=== PATIENT | male | born 1980 | race Caucasian/White ===

== ENCOUNTER 2021-03-20 13:45 | Emergency (ER) | payer OTHER ==
[2021-03-20 13:52] VITALS: BP 118/77; PULSE 104; TEMP 98.1; BMI 36.7
[2021-03-20] MEDS ORDERED: DIPHTH,PERTUSS(ACELL),TET 0.5 ML DISP.SYRIN IM ONE ×3 (14:34→14:37)
== END 2021-03-20 17:04 | disposition home or self-care (01) ==
LOC: JERFT 13:45
PROC: 0HQ1XZZ Repair Face Skin, External Approach (ICD-10-PCS; principal; 2021-03-20)
PROC: 3E0234Z Introduction of Serum, Toxoid and Vaccine into Muscle, Percutaneous Approach (ICD-10-PCS; 2021-03-20)
DX: S09.93XA Unspecified injury of face, initial encounter (principal)
CPT/HCPCS: 70450-TC; 70486-TC; 90471; 90715; 99284-25

== ENCOUNTER 2021-03-27 09:36 | Emergency (ER) | payer OTHER ==
[2021-03-27 09:46] VITALS: BP 135/87; PULSE 77; TEMP 98.4; BMI 36.7
== END 2021-03-27 10:26 | disposition home or self-care (01) ==
LOC: JERFT 09:36
DX: Z48.02 Encounter for removal of sutures (principal)
CPT/HCPCS: 99281-25

== ENCOUNTER 2021-11-17 09:32 | Inpatient (IN) | payer OTHER ==
[2021-11-17] MEDS ORDERED: ONDANSETRON 4 MG/2 ML VIAL IVPUSH ONE (10:12)
[2021-11-17] MEDS ORDERED: ACETAMINOPHEN 1000 MG/100 ML BAG IVPB ONE (10:12)
[2021-11-17] MEDS ORDERED: LACTATED RINGERS SOLUTION 1,000 ML/1,000 ML INFUS.BAG IV STA (10:12)
[2021-11-17] MEDS ORDERED: FAMOTIDINE 20 MG/50 ML IVPB 20 MG/50 ML MG IVPB ONE ×2 (10:38→11:11)
[2021-11-17] MEDS ORDERED: MAG HYDROX/AL HYDROX/SIMETH 30 ML UNIT-DOSE CUP PO ONE (10:38)
[2021-11-17] MEDS ORDERED: ACETAMINOPHEN INJECTION 100 ML IVPB ONE (11:10)
[2021-11-17 11:11] LABS: BASO % 0.3 % (0-2.0); EOS % 0.3 % (0-4.5); HEMOGLOBIN 15.2 GM/dL (11.7-16.9); LYMPH % 9.8 % (8-40); MCH 30.1 pg (25.7-33.7); MCHC 33.1 g/dl (32.0-35.9); MEAN CELL VOLUME 90.9 fl (80-96); MEAN PLT VOLUME 8.7 fl (7.5-11.1); MONO % 10.7 % (3.8-10.2); NEUT % 78.9 % (42.8-82.8); PLATELET COUNT 259 10^3/uL (134-434); RBC 5.06 M/mm3 (4.00-5.60); RDW 13.7 % (11.9-15.9); WHITE BLOOD COUNT 16.9 K/mm3 (4.0-10.0)
[2021-11-17] MEDS ORDERED: MAG HYDROX/AL HYDROX/SIMETH 30 ML UNIT-DOSE CUP ONE (11:11)
[2021-11-17] MEDS ORDERED: ONDANSETRON 4 MG/2 ML VIAL ONE (11:11)
[2021-11-17 11:20] LABS: INR 1.26 (0.83-1.09); PROTHROMBIN TIME (PATIENT) 14.5 SEC (9.7-13.0)
[2021-11-17 11:23] LABS: ACTIVATED PTT 33.6 SECONDS (25.2-36.5)
[2021-11-17 11:33] LABS: ALBUMIN 3.6 g/dl (3.4-5.0); BLOOD UREA NITROGEN 9.8 mg/dL (7-18); CALCIUM 8.3 mg/dL (8.5-10.1)
[2021-11-17 11:35] LABS: CREATININE 0.7 mg/dL (0.55-1.3)
[2021-11-17] MEDS ORDERED: PIPERACILLIN/TAZOB 3.375 GM 3.375 GM in DEXTROSE 5%-WATER - 50 ML IVPB ONE (13:41)
[2021-11-17] MEDS ORDERED: PIPERACILLIN/TAZOB 3.375 GM 3.375 GM/50 ML BAG IVPB ONE ×2 (13:44→17:05)
[2021-11-17 16:25] LABS: EPI CELLS 14 /uL (0-25.1); HYALINE CASTS 6 /uL (0-3.1); PH,URINE 5.5 (5.0-8.0); URINE APPEARANCE CLEAR; URINE BACTERIA 13 /uL (0-1359); URINE BILIRUBIN NEGATIVE (NEGATIVE); URINE COLOR YELLOW; URINE GLUCOSE (UA) NEGATIVE (NEGATIVE); URINE KETONE 1+ (NEGATIVE); URINE LEUK ESTERASE NEGATIVE (NEGATIVE); URINE NITRITE NEGATIVE (NEGATIVE); URINE PROTEIN 1+ (NEGATIVE); URINE RBC 59 /uL (0-23.9); URINE UROBILINOGEN 0.2 mg/dL (0.2-1.0); URINE WBC 20 /uL (0-25.8)
[2021-11-17] MEDS: SODIUM CHLORIDE 1,000 ML IV SCH (17:18)
[2021-11-17] MEDS: PIPERACILLIN/TAZOB 3.375 GM 3.375 GM in DEXTROSE 5%-WATER - 50 ML IVPB SCH (18:05)
[2021-11-18] MEDS ORDERED: PIPERACILLIN/TAZOBACTAM 3.375 GM VIAL IVPB ONE ×3 (00:52→16:56)
[2021-11-18] MEDS ORDERED: DEXTROSE 5%-WATER - 50 ML IVPB ONE ×3 (00:52→16:56)
[2021-11-18 01:50] VITALS: BMI 51.9
[2021-11-18] MEDS: PIPERACILLIN/TAZOB 3.375 GM 3.375 GM in DEXTROSE 5%-WATER - 50 ML IVPB SCH ×4 (01:57→17:34)
[2021-11-18] MEDS: SODIUM CHLORIDE 1,000 ML IV SCH ×2 (06:01→17:35)
[2021-11-18 08:19] LABS: HEMATOCRIT 43.3 % (35.4-49); HEMOGLOBIN 14.2 GM/dL (11.7-16.9); MCH 30.4 pg (25.7-33.7); MCHC 32.8 g/dl (32.0-35.9); MEAN CELL VOLUME 92.6 fl (80-96); MEAN PLT VOLUME 8.9 fl (7.5-11.1); PLATELET COUNT 219 10^3/uL (134-434); RBC 4.67 M/mm3 (4.00-5.60); RDW 13.8 % (11.9-15.9); WHITE BLOOD COUNT 10.6 K/mm3 (4.0-10.0)
[2021-11-18 08:24] LABS: INR 1.27 (0.83-1.09); PROTHROMBIN TIME (PATIENT) 14.6 SEC (9.7-13.0)
[2021-11-18 08:39] LABS: CALCIUM 8.4 mg/dL (8.5-10.1)
[2021-11-18 08:42] LABS: CREATININE 0.8 mg/dL (0.55-1.3)
[2021-11-18] MEDS: D5-1/2NS+10 MEQ KCL - 10 MEQ/1,000 ML INFUS.BAG IV SCH (17:29)
[2021-11-19] MEDS ORDERED: PIPERACILLIN/TAZOBACTAM 3.375 GM VIAL IVPB ONE ×3 (01:12→17:53)
[2021-11-19] MEDS ORDERED: DEXTROSE 5%-WATER - 50 ML IVPB ONE ×3 (01:13→17:54)
[2021-11-19] MEDS: PIPERACILLIN/TAZOB 3.375 GM 3.375 GM in DEXTROSE 5%-WATER - 50 ML IVPB SCH ×3 (01:27→18:00)
[2021-11-19] MEDS: D5-1/2NS+10 MEQ KCL - 10 MEQ/1,000 ML INFUS.BAG IV SCH ×2 (05:11→18:00)
[2021-11-19 09:06] LABS: BASO % 0.8 % (0-2.0); HEMATOCRIT 42.5 % (35.4-49); HEMOGLOBIN 14.1 GM/dL (11.7-16.9); LYMPH % 23.2 % (8-40); MCH 30.5 pg (25.7-33.7); MCHC 33.3 g/dl (32.0-35.9); MEAN CELL VOLUME 91.7 fl (80-96); MEAN PLT VOLUME 8.7 fl (7.5-11.1); MONO % 9.4 % (3.8-10.2); NEUT % 64.6 % (42.8-82.8); PLATELET COUNT 235 10^3/uL (134-434); RBC 4.63 M/mm3 (4.00-5.60); RDW 13.6 % (11.9-15.9); WHITE BLOOD COUNT 7.2 K/mm3 (4.0-10.0)
[2021-11-19 10:08] LABS: CALCIUM 8.2 mg/dL (8.5-10.1)
[2021-11-19 10:09] LABS: ALBUMIN 3.2 g/dl (3.4-5.0); BLOOD UREA NITROGEN 9.4 mg/dL (7-18); MAGNESIUM 2.3 mg/dL (1.8-2.4)
[2021-11-19 10:12] LABS: CREATININE 0.7 mg/dL (0.55-1.3); PHOSPHOROUS 2.2 mg/dL (2.5-4.9)
[2021-11-19 10:13] LABS: BILIRUBIN,TOTAL 0.7 mg/dL (0.2-1); TOT PROT 6.7 g/dl (6.4-8.2)
[2021-11-20] MEDS ORDERED: DEXTROSE 5%-WATER - 50 ML IVPB ONE ×3 (00:53→17:47)
[2021-11-20] MEDS ORDERED: PIPERACILLIN/TAZOBACTAM 3.375 GM VIAL IVPB ONE ×3 (00:53→17:47)
[2021-11-20] MEDS: PIPERACILLIN/TAZOB 3.375 GM 3.375 GM in DEXTROSE 5%-WATER - 50 ML IVPB SCH ×3 (01:38→18:19)
[2021-11-20 09:15] LABS: BASO % 1.3 % (0-2.0); EOS % 2.3 % (0-4.5); HEMATOCRIT 44.5 % (35.4-49); HEMOGLOBIN 14.9 GM/dL (11.7-16.9); LYMPH % 25.1 % (8-40); MCH 30.5 pg (25.7-33.7); MCHC 33.6 g/dl (32.0-35.9); MEAN CELL VOLUME 90.9 fl (80-96); MEAN PLT VOLUME 8.6 fl (7.5-11.1); MONO % 9.9 % (3.8-10.2); NEUT % 61.4 % (42.8-82.8); PLATELET COUNT 277 10^3/uL (134-434); RBC 4.89 M/mm3 (4.00-5.60); RDW 13.3 % (11.9-15.9); WHITE BLOOD COUNT 5.5 K/mm3 (4.0-10.0)
[2021-11-20] MEDS: ENOXAPARIN NA (PORCINE) 40 MG/0.4 ML DISP.SYRIN SQ SCH (10:04)
[2021-11-20 12:42] LABS: ALBUMIN 3.4 g/dl (3.4-5.0); BILIRUBIN,TOTAL 0.5 mg/dL (0.2-1); BLOOD UREA NITROGEN 7.9 mg/dL (7-18); CALCIUM 8.7 mg/dL (8.5-10.1); CREATININE 0.6 mg/dL (0.55-1.3); TOT PROT 7.1 g/dl (6.4-8.2)
[2021-11-20] MEDS: D5-1/2NS+10 MEQ KCL - 10 MEQ/1,000 ML INFUS.BAG IV SCH (19:37)
[2021-11-21] MEDS ORDERED: PIPERACILLIN/TAZOBACTAM 3.375 GM VIAL IVPB ONE (01:37)
[2021-11-21] MEDS ORDERED: DEXTROSE 5%-WATER - 50 ML IVPB ONE (01:38)
[2021-11-21] MEDS: PIPERACILLIN/TAZOB 3.375 GM 3.375 GM in DEXTROSE 5%-WATER - 50 ML IVPB SCH ×2 (02:30→11:00)
[2021-11-21 08:17] LABS: BASO % 1.1 % (0-2.0); EOS % 2.8 % (0-4.5); HEMATOCRIT 43.8 % (35.4-49); HEMOGLOBIN 14.8 GM/dL (11.7-16.9); LYMPH % 28.6 % (8-40); MCH 30.7 pg (25.7-33.7); MCHC 33.9 g/dl (32.0-35.9); MEAN CELL VOLUME 90.7 fl (80-96); MEAN PLT VOLUME 8.2 fl (7.5-11.1); NEUT % 57.5 % (42.8-82.8); PLATELET COUNT 277 10^3/uL (134-434); RBC 4.83 M/mm3 (4.00-5.60); RDW 13.3 % (11.9-15.9)
[2021-11-21 08:38] LABS: BLOOD UREA NITROGEN 11.1 mg/dL (7-18); CALCIUM 9.1 mg/dL (8.5-10.1)
[2021-11-21 08:42] LABS: CREATININE 0.8 mg/dL (0.55-1.3)
[2021-11-21] MEDS: ENOXAPARIN NA (PORCINE) 40 MG/0.4 ML DISP.SYRIN SQ SCH (11:33)
[2021-11-21 14:10] VITALS: BP 121/74; PULSE 74; TEMP 98.4
== END 2021-11-21 16:28 | disposition home or self-care (01) | DRG 244 ==
LOC: JER 09:32 → JERBED 14:38 → J7W 11-18 00:20
PROVIDERS: ADMIT Internal Medicine
DX: K57.32 Diverticulitis of large intestine without perforation or abscess without bleeding (principal); R56.9 Unspecified convulsions; Z68.43 Body mass index [BMI] 50.0-59.9, adult; D72.829 Elevated white blood cell count, unspecified; E66.9 Obesity, unspecified; E78.5 Hyperlipidemia, unspecified; F12.10 Cannabis abuse, uncomplicated; F17.210 Nicotine dependence, cigarettes, uncomplicated; K21.9 Gastro-esophageal reflux disease without esophagitis; R10.31 Right lower quadrant pain; R11.2 Nausea with vomiting, unspecified
CPT/HCPCS: 36415; 71045-TC-FY; 74177-TC; 76705-TC; 80048; 80053; 81003; 82340; 82570; 83605; 83690; 83735; 84100; 84484; 85025; 85027; 85610; 85730; 86850; 86900; 86901; 87086; 93005; 93010; 99285-25; C9803; Q9967; U0003; U0005

== ENCOUNTER 2022-03-18 00:22 | Emergency (ER) | payer OTHER ==
[2022-03-18 00:49] VITALS: BP 132/90; PULSE 77; TEMP 98.4; BMI 38.4
[2022-03-18] MEDS ORDERED: ACETAMINOPHEN 1000 MG/100 ML BAG IVPB ONE (03:54)
[2022-03-18 04:14] LABS: PH,URINE 6.5 (5.0-8.0); URINE APPEARANCE CLEAR; URINE BILIRUBIN NEGATIVE (NEGATIVE); URINE COLOR YELLOW; URINE GLUCOSE (UA) NEGATIVE (NEGATIVE); URINE KETONE TRACE (NEGATIVE); URINE LEUK ESTERASE NEGATIVE (NEGATIVE); URINE NITRITE NEGATIVE (NEGATIVE); URINE PROTEIN NEGATIVE (NEGATIVE); URINE UROBILINOGEN 0.2 mg/dL (0.2-1.0)
[2022-03-18 04:16] LABS: BASO % 0.8 % (0-2.0); HEMATOCRIT 45.2 % (35.4-49); HEMOGLOBIN 14.9 GM/dL (11.7-16.9); LYMPH % 22.2 % (8-40); MCH 29.8 pg (25.7-33.7); MEAN CELL VOLUME 90.5 fl (80-96); MEAN PLT VOLUME 8.4 fl (7.5-11.1); MONO % 8.3 % (3.8-10.2); NEUT % 67.7 % (42.8-82.8); PLATELET COUNT 238 10^3/uL (134-434); RDW 13.7 % (11.9-15.9); WHITE BLOOD COUNT 11.4 K/mm3 (4.0-10.0)
[2022-03-18] MEDS ORDERED: ACETAMINOPHEN INJECTION 100 ML IVPB ONE (04:16)
[2022-03-18 04:21] LABS: INR 1.09 (0.83-1.09); PROTHROMBIN TIME (PATIENT) 12.5 SEC (9.7-13.0)
[2022-03-18 04:24] LABS: ACTIVATED PTT 34.3 SECONDS (25.2-36.5)
[2022-03-18 04:41] LABS: CALCIUM 8.9 mg/dL (8.5-10.1)
[2022-03-18 04:42] LABS: ALBUMIN 4.1 g/dl (3.4-5.0); BLOOD UREA NITROGEN 14.9 mg/dL (7-18); MAGNESIUM 2.1 mg/dL (1.8-2.4)
[2022-03-18 04:45] LABS: CREATININE 0.8 mg/dL (0.55-1.3)
[2022-03-18 04:47] LABS: BILIRUBIN,TOTAL 0.6 mg/dL (0.2-1); TOT PROT 7.4 g/dl (6.4-8.2)
[2022-03-18] MEDS ORDERED: KETOROLAC TROMETHAMINE 15 MG/ML VIAL IVPUSH ONE (06:36)
[2022-03-18] MEDS ORDERED: KETOROLAC TROMETHAMINE 15 MG/ML VIAL ONE (06:56)
== END 2022-03-18 07:35 | disposition home or self-care (01) ==
LOC: JER 00:22
PROC: 3E0333Z Introduction of Anti-inflammatory into Peripheral Vein, Percutaneous Approach (ICD-10-PCS; principal; 2022-03-18)
PROC: 3E0333Z Introduction of Anti-inflammatory into Peripheral Vein, Percutaneous Approach (ICD-10-PCS; 2022-03-18)
DX: S01.511A Laceration without foreign body of lip, initial encounter (principal); S80.812A Abrasion, left lower leg, initial encounter; V43.52XA Car driver injured in collision with other type car in traffic accident, initial encounter
CPT/HCPCS: 36415; 70450-TC; 70486-TC; 71260-TC; 72125-TC; 73562-TC-LT-FY; 73562-TC-RT-FY; 73590-TC-LT-FY; 73590-TC-RT-FY; 74177-TC; 80053; 81003; 83735; 84484; 85025; 85610; 85730; 86850; 86900; 86901; 87086; 93005; 93010; 99285-25; Q9967